=== PATIENT | male | born 1970 | race Caucasian/White ===

== ENCOUNTER 2020-08-12 07:16 | Emergency (ER) | payer OTHER, BC, SELFPAY ==
[2020-08-12 07:18] VITALS: BP 188/110; PULSE 90; RESP 16; TEMP 36.4; O2SAT 98; BMI 28.2
--- NOTE | 2020-08-12 07:31 | RAD_ITS ---
STUDY: X-RAY - LEFT HAND REASON FOR EXAM: Metal splinter in palmar surface of the distal thumb. TECHNIQUE: 3 view(s) of the hand. COMPARISON: None. FINDINGS: Normal radiocarpal articulation. Normal distal radioulnar joint. Normal visualized carpal bones. Normal carpal articulations Normal carpometacarpal articulation of the thumb. Normal second through fifth carpometacarpal joints. Normal metacarpi. Normal metacarpophalangeal joint of the thumb. Normal interphalangeal joint of the thumb. Normal proximal and distal phalanges of the thumb. Normal metacarpophalangeal joints of the second through fifth fingers. Normal proximal and distal interphalangeal joints of the second through fifth fingers. Normal phalanges of the second through fifth fingers. There is a small metallic foreign body in the palmar aspect of the thumb at the level of the distal phalangeal diaphysis. RAD/Hand Min 3 Views IMPRESSION: Small metallic foreign body in the thumb. Electronically Signed: Db Merino MD at 8:16 EDT Tel , Service support ,
--- NOTE | 2020-08-12 07:34 | ED.RN ---
pt is a drug test for [facility]. [facility] called. they are to return call to determine whether pt should wait here of go to [facility] for drug screen
[2020-08-12] MEDS: Diphth,Pertuss(Acell),Tet Vac 0.5 ML Vial IM (07:40)
--- NOTE | 2020-08-12 07:47 | EDS_ITS ---
HPI History of Present Illness Chief Complaint: Foreign Body Narrative Narrative: Patient presenting for evaluation due to concern for foreign body in his left thumb. He is right-hand dominant, tetanus status is between 5 and 10 years. 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 He states that he got one in his left thumb, thought that he had all of it removed but has had developing redness, pain, and swelling. States that he tried to transilluminate it, could not see any foreign material. He states that there is a mild to moderate amount of pain. He denies any constitutional symptoms such as fever. Review of systems otherwise negative. PFSH PFSH Home Medications amoxicillin-pot clavulanate [Augmentin] 1 tab PO BID #14 tab 08/12/20 [Rx Last Taken Unknown] Allergy/AdvReac Type Severity Reaction Status Date / Time No Known Allergies Allergy Verified 08/12/20 07:20 Social History Smoking Status: Never smoker ROS ROS ED Constitutional Constitutional ED: Denies chills or subjective Musculoskeletal Musculoskeletal: Reports other Details: Left thumb pain Integumentary Reports rash Neurologic Neurologic: Denies paresthesias or weakness Hematologic/Lymphatic Hematologic/Lymphatic: Denies easy bleeding or easy bruising EXAM Physical Exam Const Vital Signs: 08/12/20 07:18 Temperature 97.5 F L Temperature Source Temporal Pulse Rate 90 Respiratory Rate 16 Blood Pressure 188/110 H Blood Pressure Mean 136 Pulse Ox 98 Oxygen Delivery Method Room Air Positive well nourished and well developed General Appearance ED: well developed and NAD HEENT normocephalic and atraumatic Eyes EOMs intact bilaterally Neck full ROM Resp normal respiratory effort Cardio regular rate and regular rhythm Cardio Narrative: 2+ radial pulses bilaterally symmetric Extremity Extremity Narrative: Examination the patient's left hand shows some erythema and swelling over the pad of the left thumb. I was able to express a small amount of purulence with palpation. Transillumination does not obviously show a foreign body. Normal range of motion of the thumb. Minimal extension of the erythema proximally on the thumb. Neuro oriented x3 Sensorium / Orientation: alert Psych mental status grossly normal MDM MDM MDM Narrative Medical decision making narrative: Patient presented secondary to a metallic foreign body in the thumb. Tetanus status was updated. The foreign body was removed as noted in the procedure note, this was confirmed via x-ray. I reviewed both the preprocedure and post procedure x-rays myself. Patient will be sent home with a course of Augmentin. Procedures Other Procedures Procedure(s): Patient's thumb was cleansed with an alcohol prep. A local anesthetic was injected directly over the area where it was thought that the splinter was retained. A total of 0.5 cc of 1% lidocaine were utilized. The wound was then opened using a 18-gauge needle. I was able to visualize the metallic foreign body at the base of the wound after a tourniquet was placed around the thumb. This was removed with forceps and the 18-gauge needle. This was left open. It was dressed with bacitracin and a Band-Aid. Confirmatory x- ray following the procedure confirms removal of the metallic foreign body. Discharge Plan Triage Chief Complaint: Foreign Body ED Provider: Mic Jackson Dx/Rx/DC Orders Clinical Impression: Foreign body (FB) in soft tissue Instructions: ED Foreign Body, Soft Tissue (Removed) Prescriptions: New amoxicillin-pot clavulanate [Augmentin] 875-125 mg tablet 1 tab PO BID Qty: 14 RF: 0 Primary Care Provider: Care Physician,No Primary Referrals: [facility] [GROUP OF PHYSICIANS] - Care Physician,No Primary [Primary Care Provider] - Disposition Disposition: Home, Self Care
--- NOTE | 2020-08-12 09:16 | RAD_ITS ---
STUDY: X-RAY - LEFT HAND, ATTENTION THUMB REASON FOR EXAM: Status post removal of foreign body, evaluate for any residual foreign body. TECHNIQUE: 3 view(s) of the finger were obtained. COMPARISON: Radiographs obtained earlier today. FINDINGS: Normal metacarpal. Normal metacarpophalangeal joint. Normal proximal phalanx. Normal distal phalanx. Normal interphalangeal joint. There is soft tissue swelling at the palmar aspect of the thumb without demonstrated residual foreign body. RAD/Finger(s) Min 2 Views IMPRESSION: Soft tissue swelling without demonstrated residual radiopaque foreign body. Electronically Signed: Db Merino MD at 10:13 EDT Tel , Service support ,
[2020-08-12] MEDS: Lidocaine 1% (20 ml mdv) 20 ML Vial INFILT (09:35)
[2020-08-12 09:37] VITALS: PULSE 80; RESP 16; O2SAT 100
[2020-08-12 10:10] VITALS: BP 180/90
--- NOTE | 2020-08-12 10:10 | ED.RN ---
PT GIVEN WRITTEN AND VERBAL DISCHARGE INSTRUCTIONS AND HOME GOING PRESCRIPTIONS. PT VERBALIZES UNDERSTANDING. PT EDUCATED TO MONITOR BP AT HOME. FOLLOW UP WITH PRIMARY CARE PHYSICIAN. DENIES ANY FURTHER QUESTIONS. PT AMBULATES OUT OF DEPT BY SELF.
== END 2020-08-12 10:12 | disposition home or self-care (01) ==
PROVIDERS: Emergency Provider Emergency Medicine
DX: M79.5 Residual foreign body in soft tissue (principal); Z23 Encounter for immunization
CPT/HCPCS: 20520; 73130; 73140; 90471; 90715; 99282

== ENCOUNTER → 2022-03-27 | Outpatient (CLI) | payer BC, SELFPAY ==
[2022-03-27 08:05] LABS: Absolute Lymphocyte Count 1.14 X10^3/uL (0.83-4.51); Absolute Neutrophil Count 2.6 X10^3/uL (2.0-7.7); Basophil# 0.02 X10^3/uL; Basophil% 0.5 % (0-1); Eosinophils% 4.6 % (0-5); Hematocrit 47.8 % (40-54); Hemoglobin 16.2 g/dL (13.0-16.5); Lymphocyte # 1.14 X10^3/ul (0.83-4.51); Lymphocyte % 26.3 % (19-41); Mean Corp Hgb Conc 33.9 g/dL (32-36); Mean Corpuscular Hgb 28.4 pg (27.0-32.0); Mean Corpuscular Volume 83.7 fL (80-94); Mean Platelet Vol. 9.4 fl (6.2-12.0); Monocyte# 0.34 X10^3/uL; Monocyte% 7.9 % (0-10); NRBC Flagged by Analyzer 0 % (0-5); Neutrophil # 2.62 X10^3/uL (2.7-7.7); Neutrophil % 60.5 % (47-70); Platelet Count 245 K/mm3 (150-450); RBC Distribution Width SD 36.5 fl (35.1-43.9); Red Blood Count 5.71 M/mm3 (4.6-6.2); White Blood Count 4.3 K/mm3 (4.4-11.0)
[2022-03-27 08:54] LABS: ALB/GLOB Ratio 1.1 RATIO (0.9-2.4); AST(SGOT) 15 U/L (15-37); Alanine Aminotransfer ALT/SGPT 25 U/L (16-61); Albumin, Serum 3.9 g/dL (3.2-5.0); Alkaline Phosphatase 46 U/L (45-117); Anion Gap 8 (5-15); BUN 16 mg/dL (7-18); BUN/Creat Ratio 14.8 RATIO (10-20); Calcium,Total 8.9 mg/dL (8.5-10.1); Chloride 105 mmol/L (98-107); Cholesterol 209 mg/dL (200); Creatinine, Serum 1.08 mg/dL (0.70-1.30); EST Glomerular Filtration Rate 77 mL/min (>60); Est Glom Filt Rate - Afr Amer 93 mL/min (>60); Globulin 3.4 g/dL (2.2-4.2); Glucose 112 mg/dL (74-106); High Density Lipoprotein 57 mg/dL; Magnesium 2.1 mg/dL (1.6-2.6); PSA,Total- Diagnostic 1.11 ng/mL (0.0-4.0); Potassium 4.4 mmol/L (3.5-5.1); Protein, Total 7.3 g/dL (6.4-8.2); Sodium Level 140 mmol/L (136-145); Triglycerides 194 mg/dL; Very Low Density Lipoprotein 39 mg/dL (5-40)
[2022-03-29 08:07] LABS: Vitamin D,25 Hydroxy 15.9 ng/mL
== END | disposition home or self-care (01) ==
PROVIDERS: PCP Internal Medicine; Visit Provider Internal Medicine
DX: I10 Essential (primary) hypertension (principal); Z13.220 Encounter for screening for lipoid disorders; N40.0 Benign prostatic hyperplasia without lower urinary tract symptoms; E55.9 Vitamin D deficiency, unspecified
CPT/HCPCS: 36415; 80053; 80061; 82306; 83735; 84153; 84443; 85025

== ENCOUNTER → 2022-04-24 | Outpatient (CLI) | payer BC, SELFPAY ==
[2022-04-24 08:02] LABS: Bilirubin, Direct 0.29 mg/dL (0.00-0.30)
== END | disposition home or self-care (01) ==
LOC: LAB 07:15
PROVIDERS: PCP Internal Medicine; Visit Provider Internal Medicine
DX: R17 Unspecified jaundice (principal)
CPT/HCPCS: 36415; 82247; 82248

== ENCOUNTER → 2022-11-13 | Outpatient (CLI) | payer BC, SELFPAY ==
[2022-11-13 08:15] LABS: Anion Gap 5 (5-15); BUN 13 mg/dL (7-18); BUN/Creat Ratio 11.8 RATIO (10-20); Calcium,Total 9.2 mg/dL (8.5-10.1); Chloride 104 mmol/L (98-107); EST Glomerular Filtration Rate 75 mL/min (>60); Est Glom Filt Rate - Afr Amer 91 mL/min (>60); Glucose 121 mg/dL (74-106); Magnesium 2.2 mg/dL (1.6-2.6); Potassium 3.8 mmol/L (3.5-5.1); Sodium Level 140 mmol/L (136-145)
== END | disposition home or self-care (01) ==
LOC: LAB 07:19
PROVIDERS: PCP Internal Medicine; Referring Provider Internal Medicine; Visit Provider Internal Medicine
DX: I10 Essential (primary) hypertension (principal)
CPT/HCPCS: 36415; 80048; 83735

== ENCOUNTER → 2024-11-10 | Outpatient (CLI) | payer BC, SELFPAY ==
[2024-11-10 09:49] LABS: AST(SGOT) 22 U/L (<=37); Alanine Aminotransfer ALT/SGPT 21 U/L (<=46); Albumin, Serum 4.4 g/dL (3.5-5.0); Alkaline Phosphatase 40 U/L (40-129); Anion Gap 12 (5-15); BUN 15 mg/dL (4-19); BUN/Creat Ratio 13.2 RATIO (10-20); Calcium,Total 9.4 mg/dL (7.6-11.0); Carbon Dioxide 24.8 mmol/L (21.0-32.0); Chloride 103 mmol/L (98-108); Globulin 2.7 g/dL (2.2-4.2); Glucose 115 mg/dL (70-99); Magnesium 2.2 mg/dL (1.5-2.2); PSA,Total - Annual Screen 1.29 ng/mL (0.02-4.00); Potassium 3.9 mmol/L (3.3-5.1); Vitamin D,25 Hydroxy 25.7 ng/mL (30-100)
== END | disposition home or self-care (01) ==
LOC: LAB 08:01
PROVIDERS: PCP Internal Medicine; Referring Provider Internal Medicine; Visit Provider Internal Medicine
DX: Z00.00 Encounter for general adult medical examination without abnormal findings (principal); Z12.5 Encounter for screening for malignant neoplasm of prostate; I10 Essential (primary) hypertension
CPT/HCPCS: 36415; 80053; 82306; 83735; 84153; G0103